=== PATIENT | female | born 1950 | race Caucasian/White ===

== ENCOUNTER 2016-10-18 07:39 | Day surgery (SDC) | payer MEDICAID, MEDICARE ==
[~2016-10-18 07:39] MED LIST: 1-ME1LIQ PO; ASPI325T10 OR; ATOR40TA49 PO; CARV12.5 PO; DIGO0.12 PO; FENO160T2 PO; GLUCTAB PO; LISI-360 PO; LORTA5 PO; NITR0.4S SL; PROP60CA PO; RANI150 PO
[2016-10-18] MEDS ORDERED: POVIDONE IODINE 5% (ANTISEPSIS KIT) 4 APPLICATIONS EACH NARE PRN (08:45)
[2016-10-18] MEDS ORDERED: LACTATED RINGER'S 1000 ML IV PRN (08:45)
[2016-10-18] MEDS ORDERED: INSULIN HUMAN REGULAR 1,000 UNITS/10 ML VIAL SQ PRN (08:45)
[2016-10-18] MEDS ORDERED: METOPROLOL TARTRATE 25 MG TAB PO PRN (08:45)
[2016-10-18] MEDS ORDERED: SODIUM CHLORID 0.9% 500 ML IV PRN (08:45)
[2016-10-18] MEDS ORDERED: CHLORHEXIDINE GLUCONATE 2 % 1 PACK (2 CLOTHS) TOPICAL PRN (08:45)
[2016-10-18] MEDS ORDERED: NOVONP2 SQ (09:24)
[2016-10-18] MEDS ORDERED: GLIM4TAB PO (09:24)
[2016-10-18] MEDS ORDERED: LISI10TA3 PO (09:24)
[2016-10-18] MEDS ORDERED: CYAN100017 PO (09:24)
[2016-10-18] MEDS ORDERED: ATOR40TA16 PO (09:24)
[2016-10-18] MEDS ORDERED: CARV12.52 PO (09:24)
[2016-10-18] MEDS ORDERED: NOVORP2 SQ (09:24)
[2016-10-18] MEDS ORDERED: CALC600T4 PO (09:24)
[2016-10-18] MEDS ORDERED: ASPI325T PO (09:24)
[2016-10-18] MEDS ORDERED: RANI150T PO (09:24)
[2016-10-18] MEDS ORDERED: FENO145T2 PO (09:24)
[2016-10-18] MEDS ORDERED: NITR0.4S SL (09:24)
[2016-10-18] MEDS ORDERED: PROPOFOL 200 MG/20 ML AMP IV ONE (09:51)
--- NOTE | 2016-10-18 11:08 | MB ---
cc: GUNNER PRECIADO MD, SOHIT K. MD MINOR, STEPHEN DATE OF CONSULTATION: 10/18/[address] Rocky Suarez REASON FOR CONSULTATION Severe mitral regurgitation. HISTORY OF PRESENT ILLNESS Ms. Krishnamurthy is a very pleasant 66-year white female with a known history of congestive heart failure, ischemic cardiomyopathy, coronary artery disease, who is status post previous coronary artery stenting x2, initially in 1998 and subsequently in 2013, who now presents with progressive symptoms of orthopnea, exertional dyspnea with minimal exertion and palpitations. The patient has been seen by Dr. Suarez and has undergone further work-up including an echocardiogram which has revealed moderate to severe mitral regurgitation in the setting of moderate left ventricular dysfunction with an estimated ejection fraction about 35% and a patent foramen ovale (PFO). She underwent a DANGELO today which confirmed the findings of severe mitral regurgitation with moderate to severe left ventricular dysfunction (EF 25-30%). I am now being consulted for a surgical opinion regarding her mitral valvular pathology. At the present time she has exertional dyspnea with minimal exertion but otherwise denies any chest pain or syncopal episodes. PAST MEDICAL HISTORY 1. Coronary artery disease as described above, status post angioplasty and stenting. 2. Congestive heart failure. 3. Cardiomyopathy. 4. Carotid artery disease, status post carotid endarterectomy. 5. History of myocardial infarction. 6. Pulmonary hypertension. 7. Hypertension. 8. Hyperlipidemia. 9. Insulin-dependent diabetes mellitus. 10. Multinodular goiter. 11.Osteoporosis. PAST SURGICAL HISTORY 1. Carotid endarterectomy bilateral, both in 2013. 2. Coronary angioplasty and stenting as described above. 3. . 4. Colonoscopy. 5. Tonsillectomy. 6. Tubal ligation. ALLERGIES No known drug allergies. MEDICATIONS Current medications include: 1. Aspirin. 2. Atorvastatin. 3. Calcium carbonate. 4. Carvedilol. 5. Vitamin-B. 6. Fenofibrate. 7. Glimepiride. 8. Lisinopril. 9. Nitrostat. 10.Insulin. 11.Ranitidine. 12.Vitamin-D. SOCIAL HISTORY The patient denies a history of illicit drug use. She is a social alcohol drinker and is a former smoker. FAMILY HISTORY Noncontributory. REVIEW OF SYSTEMS As above. All other parameters are negative. PHYSICAL EXAMINATION VITAL SIGNS: On physical examination today she is 78.4 kg, blood pressure 139/77 with a heart rate of 64 which is sinus rhythm, respiratory rate 18, and she is afebrile. HEENT: Normocephalic, atraumatic. Pupils are reactive. Extraocular muscles intact. NECK: No cervical lymphadenopathy, carotid bruits or JVD. CARDIOVASCULAR: Regular rate and rhythm. Normal S1, S2, without gallops or rubs. There is a 4/6 systolic ejection murmur with fairly distant heart sounds. LUNGS: Clear to auscultation bilaterally with good exchange. ABDOMEN: Soft, nontender, nondistended with normoactive bowel sounds. No hepatosplenomegaly. EXTREMITIES: Bilateral lower extremity pulses are intact without cyanosis, clubbing or edema. No venous varicosities. NEUROLOGIC: Intact with no focal deficits. IMPRESSION 1. Severe mitral regurgitation. 2. Coronary artery disease. 3. Congestive heart failure. 4. Patent foramen ovale. 5. Pulmonary hypertension. 6. Insulin-dependent diabetes mellitus. 7. Hypertension. 8. Carotid occlusive disease. 9. Hyperlipidemia. 10.Hypertensive renal insufficiency. PLAN The echo and DANGELO findings were discussed in detail with the patient and her friend today. Therapeutic options available including mitral valve repair/replacement with PFO closure were discussed. Prior to undertaking any cardiac surgical procedure she will need a coronary angiography to delineate her coronary anatomy as well as to identify any recurrent or residual epicardial coronary artery blockages. Dr. Suarez will schedule that at the patient's and his convenience, and we will follow-up with her at that point to discuss further surgical intervention. Thank you for allowing me to participate in the care of your patient. Jessie DOMINGUEZ /10:37 AM /10:48 AM
--- NOTE | 2016-10-18 12:03 | EKG ---
Date Performed: 10/18/2016 Time Performed: 08:20:28 PTAGE: 66 years EKG: Sinus rhythm . Left axis deviation LVH with secondary repolarization abnormality Lateral ST-T changes are probably due to ventricular hypertrophy Abnormal ECG NO SIGNIFICANT CHANGE FROM PRIOR ELECTROCARDIOGRAM. PREVIOUS TRACING : 12/26/2012 06.40 DOCTOR: Ángel Bucio Interpretating Date/Time 10/18/2016 12:03:19
--- NOTE | 2016-10-25 08:02 | ETE ---
Study Study Date:10/18/2016 STUDY CONCLUSIONS SUMMARY - Left ventricle: The cavity size was dilated. Wall thickness was at the upper limits of normal. Systolic function was severely reduced by visual assessment. The estimated ejection fraction was in the range of 20% to 25%. Diffuse hypokinesis. - Aortic valve: No evidence of vegetation. Mild regurgitation. - Mitral valve: Calcified annulus. No evidence of vegetation. Moderate to severe regurgitation. - Left atrium: The atrium was moderately dilated. No evidence of thrombus in the atrial cavity or appendage. - Right atrium: The atrium was mildly to moderately dilated. No evidence of thrombus in the atrial cavity or appendage. - Atrial septum: Doppler showed a moderate jepd-uu-byckw shunt through a patent foramen ovale, at baseline or with provocation. - Tricuspid valve: No evidence of vegetation. Mild regurgitation. - Pulmonic valve: No evidence of vegetation. - Pulmonary arteries: Systolic pressure was moderately increased. PA peak pressure: 50mm Hg (S). If LV function is below 40, please consider prescribing an ACEI or ARB or document rationale for non-use. PROCEDURE DATA Consent: The risks, benefits, and alternatives to the procedure were explained to the patient and informed consent was obtained. Procedure: Initial setup. The patient was brought to the laboratory in the fasting state. Intravenous access was obtained. Surface ECG leads and pulse oximetric signals were monitored. Sedation. Conscious sedation was administered by cardiology staff. Transesophageal echocardiography. Topical anesthesia was obtained using viscous lidocaine. A transesophageal probe was inserted by the attending community resource officer. Image quality was good. Study completion: All IVs inserted during the procedure were removed. The patient tolerated the procedure well. There were no complications. Transesophageal echocardiography. 2D, complete spectral Doppler, and color Doppler. CARDIAC ANATOMY LEFT VENTRICLE: The cavity size was dilated. Wall thickness was at the upper limits of normal. Systolic function was severely reduced by visual assessment. The estimated ejection fraction was in the range of 20% to 25%. Diffuse hypokinesis. AORTIC VALVE: Trileaflet; mildly thickened leaflets. Cusp separation was normal. No evidence of vegetation. Doppler: Mild regurgitation. Aorta: - There was no atheroma. There was no evidence for dissection. Aortic root: The aortic root was not dilated. Ascending aorta: The ascending aorta was normal in size. Aortic arch: The aortic arch was normal in size. Descending aorta: The descending aorta was normal in size. MITRAL VALVE: Calcified annulus. Leaflet separation was normal. No evidence of vegetation. Doppler: Moderate to severe regurgitation. LEFT ATRIUM: The atrium was moderately dilated. No evidence of thrombus in the atrial cavity or appendage. The appendage was morphologically a left appendage, multilobulated, and of normal size. Emptying velocity was normal. ATRIAL SEPTUM: Doppler showed a moderate kckm-wk-iulkn shunt through a patent foramen ovale, at baseline or with provocation. RIGHT VENTRICLE: The cavity size was at the upper limits of normal. Wall thickness was normal. Systolic function was normal. PULMONIC VALVE: Structurally normal valve. No evidence of vegetation. Doppler: Trace to mild regurgitation. TRICUSPID VALVE: Structurally normal valve. Leaflet separation was normal. No evidence of vegetation. Doppler: Mild regurgitation. PULMONARY ARTERY: The main pulmonary artery was mildly dilated. Systolic pressure was moderately increased. RIGHT ATRIUM: The atrium was mildly to moderately dilated. No evidence of thrombus in the atrial cavity or appendage. The appendage was morphologically a right appendage. PERICARDIUM: There was no pericardial effusion. DOPPLER MEASUREMENTS ADULT NORMAL Main pulmonary artery Pressure, S *50 mm Hg =30 Tricuspid valve Regurgitant peak velocity 320 cm/s Peak RV-RA gradient, S 41 mm Hg Systemic veins Estimated CVP 10 mm Hg Right ventricle RV pressure, S *51 mm Hg <30 Pulmonic valve Peak velocity, S 52.9 cm/s LEGEND: Mean values are shown as u=mean value. Asterisk (*) marcano values outside specified normal range. Prepared and signed by Clayton Suarez [id number]
== END 2016-10-18 10:30 | disposition home or self-care (01) ==
LOC: HDOC 07:39 → HDIC 07:40 → HDOC 10:30
PROVIDERS: ATTEND Internal Medicine
DX: I34.0 Nonrheumatic mitral (valve) insufficiency (principal); I50.9 Heart failure, unspecified; I25.5 Ischemic cardiomyopathy; I25.10 Atherosclerotic heart disease of native coronary artery without angina pectoris; Z95.5 Presence of coronary angioplasty implant and graft; Q21.1 Atrial septal defect; I42.9 Cardiomyopathy, unspecified; I25.2 Old myocardial infarction; I27.2 Other secondary pulmonary hypertension; I10 Essential (primary) hypertension; Z79.4 Long term (current) use of insulin; E11.9 Type 2 diabetes mellitus without complications; M81.0 Age-related osteoporosis without current pathological fracture; E04.2 Nontoxic multinodular goiter; E78.5 Hyperlipidemia, unspecified; N28.9 Disorder of kidney and ureter, unspecified; I65.29 Occlusion and stenosis of unspecified carotid artery
CPT/HCPCS: 93005; 93312; 93320; 93325

== ENCOUNTER 2016-10-24 06:34 | Day surgery (SDC) | payer MEDICARE ==
[~2016-10-24] VITALS: Ht 157.5 cm; Wt 74.4 kg
[~2016-10-24 06:34] MED LIST changes: +ASPI325T PO; +ATOR40TA16 PO; +CALC600T4 PO; +CARV12.52 PO; +CYAN100017 PO; +FENO145T2 PO; +GLIM4TAB PO; +LISI10TA3 PO; +NOVONP2 SQ; +NOVORP2 SQ; +RANI150T PO
[2016-10-24 07:35] VITALS: BP 183/101; PULSE 72; RESP 16; TEMP 97.9; O2SAT 95
[2016-10-24] MEDS ORDERED: VITA1000 PO (07:47)
[2016-10-24] MEDS ORDERED: IOHEXOL 350 MG/ML 50 ML BTL (for Cath Lab) OTHER ONE (09:02)
[2016-10-24] MEDS ORDERED: HEPARIN-NS/PF INJ 500 ML ONE (09:07)
[2016-10-24] MEDS ORDERED: MIDAZOLAM HCL 2 MG/2 ML VIAL ONE (09:08)
[2016-10-24] MEDS ORDERED: NITROGLYCERIN INJ 5 ML ONE (09:08)
[2016-10-24] MEDS ORDERED: HEPARIN SODIUM - IV 10,000 UNITS/10 ML VIAL ONE (09:08)
--- NOTE | 2016-10-24 10:05 | CATHPROC ---
Poppin HIS Report Study Information Study Number Admission Scheduled Start Study Start [id number] 10/24/2016 10/24/2016 Oct 24 2016 8:29AM Referring Institution Admit Source Facility Department 1 Other [facility] Operations Manager/Coordinator Physician and Clinical Staff Initial Clayton Landaverde Film Cuttercandice Holliday RN, Scottie RecordNidia Brothers,RT(R) (BS) Scrub Kody Sierra RCIS(BS) Procedures Performed Procedure Location (Site) Vessel Name Coronary Angiograms LCA Left Coronary Coronary Angiograms RCA Right Coronary Wire insertion Fem Art (right) Femoral Art Equipment Time Funds Transfer Clerk Description Size Mfg Part Number Used/Scraped ARROW INTERNATIONAL CATHETER, FR.7 BALLOON [id number] 08:30 FR 7 Used INC. WEDGE PRESSURE *[id number] TRANSDUCER, TRUWAVE 08:30 [employer] * [id number] Used W/STOCKCOCK [id number] *[id number] [id number] *[id number] 08:30 MEDLINE IND[employer] PACK, CCL CUSTOM * Used *[id number] 08:30 [employer] PACER PEN, SKIN DUAL W/ RULER * [id number] Used [id number] 08:30 BABL Media WIRE, 3MMJ .035 180CM 180CM Used *[id number] 08:30 NAMIC MANIFOLD, 2 PORT * Used *[id number] 08:30 NAMIC MANIFOLD, 4 PORT * Used *[id number] 08:30 NYCOMED OMNIPAQUE, 350 MG, 100ML 100ML [id number] Used DYEVERT, CONTRAST 09:13 [employer]SR[employer] NG HVOFF Used MODULATION SYSTEM NG [id number] 08:30 GARCES MEDICAL BLANKET,WARM AIR CCL * Used *[id number] 08:30 TERUMO MEDICAL SHEATH, FR5 TERUMO (10CM) FR 5 [id number] Used 08:30 TERUMO MEDICAL SHEATH, FR7 TERUMO (10CM) FR 7 [id number] Used History: Current Medications Medication Dosage/Unit Route Frequency Last Date/Time Taken Statins (any) ASA Beta Eitan History: Allergies Allergy Reaction No Known Allergies History: Risk Factors Family History of Hypertension Dyslipidemia Previous NM Previous Heart Failure Premature CAD Yes Yes No Yes No Prior Valve Prior PCI Prior PCIDate Prior CABG Surgery No Yes 06/09/1997 No Cerebrovascular Peripheral Artery Chronic Lung On Dialysis Diabetes Diabetes Therapy Disease Disease Disease No No No No Yes Oral History: Stress Tests Stress or Imaging Studies Performed No History: Other Current Smoker Method Quit Packs a Day Years Used Pack Years No Cigarettes 20 Years Ago 1 20 20 Labs Hgb (g/dl) Hct (%) WBC (l/cumm) Platelets (thousands) 12.00-18.00 37.00-55.00 4.80-10.80 140.00-450.00 12.4 39.3 3.9 160 Glucose (mg/dl) BUN (mg/dl) Creatinine (mg/dl) BUN:Creatinine (1:x) 60.00-110.00 8.00-20.00 0.10-9.00 10.00-20.00 143 38 2.0 19 Na (meq/l) 138.00-146.00 143 INR (PTT:PT) 0.50-2.00 1.1 CPK-MB (ng/ML) 0.00-7.00 Not Drawn Medication Medication Total Dose (Bolus/Oral) Medication Total Dosage/Unit 1% XYLOCAINE 20 mL FENTANYL 50 mcg VERSED 2 mg Medications (Bolus/Oral) Medication Time Given Dosage/Unit Administered By Reason 1% XYLOCAINE 10/24/2016 9:22:32 AM 20 mL Clayton Suarez 20 mL 1% XYLOCAINE given in lab by Clayton Suarez in Right Groin via Subcutaneous. VERSED 10/24/2016 9:23:30 AM 2 mg Scottie Holliday RN 2 mg VERSED given in lab by Scottie Holliday RN in Left Antecubital via Peripheral IV. FENTANYL 10/24/2016 9:24:10 AM 50 mcg Scottie Holliday RN 50 mcg FENTANYL given in lab by Scottie Holliday RN in Left Antecubital via Peripheral IV. Medication (Drip) Medication Time Given Dosage/Unit Concentration/Unit Diluent (ml) Solution IV Solutions 10/24/2016 9:04:45 AM 0 mL (IV) 500 NaCl .9 IV Solutions given in lab by Scottie Holliday RN in Left Antecubital via Peripheral IV. Pump/Drip Flow = 20 ml/hr using NaCl .9. Initial Case Assessment Cardiovascular HR Rhythm NIBP Chest Pain 77 reg 164/93 0 Edema Present Skin color Skin None Normal Warm Dry Circulatory - Right Pulses Dorsalis Pedis Femoral 1 1 Scale (0,1,2,3,4,d) Circulatory - Left Pulses Dorsalis Pedis Femoral 1 1 Scale (0,1,2,3,4,d) Circulatory - Lower Extremities Color Lower Right Color Lower Left Normal Normal Neurological State Oriented to time-place- Alert Moves all extremities person Respiration - General Respiration Rate SpO2 (%) (B/min) 15 95 Chronological Log Time Study Chronological Log 9:02:56 Patient arrived via Bed. 9:02:57 Patient Name, D.O.B, / Armband Verified By R.N. 9:04:33 Consent signed by the physician and the patient and verified by the Operations Manager/Coordinator staff. 9:04:34 Pre-op and post- op instructions given; patient acknowledges understanding of instructions. 9:04:35 Verbal Stimulation=2 Physical Stimulation=2 Airway=2 Respiration=2 TOTAL=8. (0=absent, 1=li mited, 2=present) 9:04:36 Presedation assessment performed by Operations Manager/Coordinator RN. 9:04:39 Patient has been NPO for More than 6Hrs. 9:04:41 Skin Breakdown none per pt 9:04:41 Patient Warmer Placed on the Table. 9:04:44 Inocencio Prominences Protected 9:04:45 A # 20 IV was noted in the Antecubital (left). Grade = 0 IV Solutions given in lab by Scottie Holliday RN in Left Antecubital via Peripheral IV. Pump/Drip F low = 20 ml/hr using NaCl 9:04:45 .9. 9:04:46 History and physical on the chart or being dictated. Assessment: Initial Case, HR=77 BPM, Rhythm=reg, XZWL=020/93 mmhg, Chest Pain=0, Edema=None, Col or=Normal, Skin = Warm, Dry Right Pulses: Marcelo Ped=1, Femoral=1 Left Pulses: Marcelo Ped=1, Femoral=1 9:04:47 Lower Right Extremities: Color=Normal Lower Left Extremities: Color=Normal Neurological: State=Alert, Ox3, HARMON Respiration: Resp=15 B/min, SpO2=95 % Vitals capture started with the following parameters, Patient=Adult, Interval=15 min, Initial Pr shssyy=337 mmHg, 9:05:07 Deflation Rate=5 mmHg 9:05:51 QFQN=192/93 mmhg, SpO2=92.0 %, Pain=0, Chidi=10, Grider=2 9:09:58 Reference ECG taken 9:10:15 Bilateral groins prepped with 2% chlorhexidine, and with a 3 min. waiting time. 9:10:52 HR=78 bpm, TZDH=833/100 mmhg, SpO2=95.0 %, Resp=13 B/min, Pain=0, Chidi=10, Grider=2 9:15:53 HR=75 bpm, RBWU=203/98 mmhg, SpO2=94.0 %, Resp=14 B/min, Pain=0, Chidi=10, Grider=2 9:20:48 HR=68 bpm, RMPR=602/70 mmhg, SpO2=90.0 %, Resp=6 B/min, Pain=0, Chidi=10, Grider=2 9:20:53 Pressure channel 1 zeroed. 9:21:08 Pressure channel 1 zeroed. Time Out. Correct patient, correct procedure,correct physician, power injector not loaded with c ontrast with surgical 9:22:18 team present. Time Out Concurred by , individual staff in procedure 9:22:31 Case Start 9:22:32 20 mL 1% XYLOCAINE given in lab by Clayton Suarez in Right Groin via Subcutaneous. 9:23:30 2 mg VERSED given in lab by Scottie Holliday RN in Left Antecubital via Peripheral IV. 9:24:02 Access site was Right Femoral Artery. 9:24:10 50 mcg FENTANYL given in lab by Scottie Holliday RN in Left Antecubital via Peripheral IV. 9:24:11 A SHEATH, FR5 TERUMO (10CM) FR 5 was advanced into the Fem Art (right) using the Percutaneou s technique. 9:25:36 Access site was Right Femoral Vein. 9:25:49 HR=63 bpm, UBHF=271/66 mmhg, SpO2=96.0 %, Resp=16 B/min, Pain=0, Chidi=10, Grider=2 9:25:55 A SHEATH, FR7 TERUMO (10CM) FR 7 was advanced into the Fem Vein (right) using the Percutaneo us technique. A CATHETER, FR.7 BALLOON WEDGE PRESSURE FR 7 was advanced over a wire. OMNIPAQUE, 350 MG, 100ML 100ML 9:27:18 was used for injections. 9:28:04 Pressure channel 1 zeroed. 9:30:06 Pressure channel 1 zeroed. Recorded Pressure: RA, HR=61, Condition=Condition 1 9:30:38 (Right Atrium) RA 9:30:46 HR=60 bpm, GJOS=479/65 mmhg, SpO2=98.0 %, Resp=11 B/min, Pain=0, Chidi=10, Grider=2 Recorded Pressure: RV, HR=66, Condition=Condition 1 9:31:06 (Right Ventricle) RV 50/-3/4 Recorded Pressure: RV, HR=60, Condition=Condition 1 9:31:32 (Right Ventricle) RV 52/1/6 Recorded Pressure: MPA, HR=60, Condition=Condition 1 9:32:32 (Main Pulmonary Artery) MPA 51/12/28 A JR 4.0 INFINITI CATHETER FR 5 was advanced over a wire. OMNIPAQUE, 350 MG, 100ML 100ML was use d for 9:32:44 injections. Recorded Pressure: LV, HR=61, Condition=Condition 1 9:33:40 (Left Ventricle) LV 160/3/15 9:33:54 Pressure channel 2 zeroed. Recorded Pressure: PCW, HR=61, Condition=Condition 1 9:34:35 (Pulmonary Capillary Wedge) PCW 9:35:12 Saturation: Site=PA (Pulmonary Artery) , O2=74.4 %, Hgb=12.4 gm/dl, Condition=Condition 1. U sed in calculation. 9:35:29 Saturation: Site=FA (Femoral Artery) , O2=92.8 %, Hgb=12.4 gm/dl, Condition=Condition 1. Us ed in calculation. 9:35:50 HR=61 bpm, UMHA=212/61 mmhg, SpO2=88.0 %, Resp=14 B/min, Pain=0, Chidi=10, Grider=2 Recorded Pressure: LV, Ao, PCW, HR=60, Condition=Condition 1 (Left Ventricle) LV 141/0/11, 9:36:26 (Aorta) Ao 138/48/80, (Pulmonary Capillary Wedge) PCW -8/-8/-8 Recorded Pressure: Ao, PCW, HR=60, Condition=Condition 1 9:37:12 (Aorta) Ao 133/51/81, (Pulmonary Capillary Wedge) PCW -7/-7/-8 9:38:05 The RCA was injected and visualized at various angles. OMNIPAQUE, 350 MG, 100ML 100ML used . After removing the current catheter a JL 4.0 INFINITI CATHETER FR 5 was advanced over a WIRE, 3 MMJ .035 180CM 9:38:22 180CM. 9:40:42 HR=61 bpm, NZQQ=758/64 mmhg, SpO2=98.0 %, Resp=14 B/min, Pain=0, Chidi=10, Grider=2 9:41:13 The LCA was injected and visualized at various angles. OMNIPAQUE, 350 MG, 100ML 100ML used . 9:42:10 A WIRE, 3MMJ .035 180CM 180CM was inserted via Fem Art (right). 9:42:19 Catheter was removed 9:42:20 Wire removed 9:42:25 Case End 9:42:53 Catheter(s) removed without difficulty 9:43:01 No case complications noted. 9:43:04 Cine recording checked. 9:43:06 Bedside Report will be given. 9:43:08 Contrast Scanned 9:43:11 A Left and Right Heart Cath was performed. 9:45:28 DOCU called. Spoke to [employer]. 9:46:29 HR=62 bpm, YNLQ=775/66 mmhg, SpO2=99.0 %, Resp=13 B/min, Pain=0, Chidi=10, Grider=2 9:46:54 Sheath removed; pressure applied to access site. artery 9:50:53 HR=59 bpm, NFKZ=365/69 mmhg, SpO2=99.0 %, Resp=15 B/min, Pain=0, Chidi=10, Grider=2 9:55:52 HR=57 bpm, WWTU=998/68 mmhg, SpO2=98.0 %, Resp=17 B/min 9:57:39 Sheath removed; pressure applied to access site. vein 10:00:53 HR=57 bpm, NEQS=426/67 mmhg, SpO2=98.0 %, Resp=18 B/min, Pain=0, Chidi=10, Grider=2 10:03:38 Sterile dressing applied to site 10:04:24 Vitals capture stopped. 10:07:12 Patient moved to [facility] Study - Contrast Media Used In Study Contrast Total Opened (mL) Total Used (mL) Total Wasted (mL) Omnipaque 12 12 0 End Study - Maximum Contrast Load Max Contrast Load (mL) 186.0 End Study - Radiation Exposure Fluoro Time (minutes) 4.0 End Study - Sheaths Sheaths Pulled By Sheath Hold Time (min) Kody Sierra End Study - Patient Disposition Complications Transferred To Interventional Outcome No Operations Manager/Coordinator Holding No attempt made
--- NOTE | 2016-10-24 10:26 | MA ---
cc: JUSTINE DELUCA DATE 10/24/2016 PROCEDURE PERFORMED 1. Fluoroscopy with interpretation 2. Left heart catheterization 3. Coronary angiography 4. Right heart catheterization METHOD The risks, benefits and alternatives discussed with the patient. The patient understood and consent to the procedure. PROCEDURE The patient brought into the catheterization lab, placed on the catheterization table. The right groin was prepped and draped in a sterile fashion. The right groin was anesthetized with 2% lidocaine. The right common femoral artery was cannulated and a 5-Turkish 11 cm sheath was placed without difficulty. The right femoral vein was also accessed and a 7-Turkish 11 cm sheath was placed without difficulty. LEFT HEART CATHETERIZATION A 5-Turkish JR-5 catheter was advanced across the aortic valve without difficulty. Intraventricular hemodynamics measured 141/0 mmHg. The left ventricular end-diastolic pressure 11 mmHg. No significant aortic stenosis by transaortic valvular pullback gradient. RIGHT HEART CATHETERIZATION A 7-Turkish Dallas-Perez pulmonary arterial catheter was advanced through the right femoral venous sheath to the level of the right atrium under fluoroscopic guidance. Hemodynamics are as follows; 1. Right atrial pressure measured at 9 mmHg. Right ventricular pressure measured at 51/1 mmHg. Pulmonary arterial pressure measured at 51/12 mmHg. Pulmonary capillary wedge pressure measured 10 mmHg. Cardiac output measured at 7.1 liters per minute. The cardiac index is 4.0 liters per minute. 2. Simultaneous left ventricular end-diastolic pressure and pulmonary capillary wedge pressure tracings revealed no significant mitral stenosis present. CORONARY ANGIOGRAPHY 1. The left main coronary has minor luminal irregularities. 2. Left anterior descending coronary artery is heavily calcified. Just beyond the takeoff of a first septal video player mechanic in the mid left anterior descending, there is a large stent present which appears to be widely patent. Just proximal to the stent, there is an 80% tubular stenosis present. There is a large diagonal branch that bifurcates off the mid to distal segment that has minor luminal irregularities. The distal left anterior descending coronary is a smaller caliber size with some moderate 50% stenosis throughout to the level of the apical LAD which has some more significant disease. 3. The left circumflex coronary has a 75% ostial stenosis leading to an obtuse marginal branch. There is a 60% stenosis in the proximal obtuse marginal branch and there is minor irregularities thereafter. The right coronary is 100% occluded. There is very severe heavy calcium throughout its entire course, subtotally occluded proximally and then totally occluded distally. There is a smaller caliber vessel of the posterior descending coronary noted on [id number] collateralization. CONCLUSION 1. Severe multivessel coronary artery disease. 2. Moderate pulmonary hypertension 3. Normal left and right-sided filling pressures 4. Normal cardiac output and index. PLAN We will discuss the case further with Dr. Elizabeth for further recommendations related to a bypass surgery, mitral valve repair/replacement and PFO closure. MD BARNEY Arzola/JESUS /9:57 AM /10:15 AM
== END 2016-10-24 14:52 | disposition home or self-care (01) ==
LOC: HDIC 06:34 → HDOC 06:34
PROVIDERS: ATTEND Internal Medicine
DX: I25.10 Atherosclerotic heart disease of native coronary artery without angina pectoris (principal); I27.2 Other secondary pulmonary hypertension
CPT/HCPCS: 82810; 86850; 86900; 86901; 93456; C1769; C1893; J1644; J2250; J3010; Q9967

== ENCOUNTER 2016-11-22 06:32 | Day surgery (SDC) | payer MEDICARE ==
[~2016-11-22] VITALS: Ht 157.5 cm; Wt 76.5 kg
[2016-11-22] VITALS (10 sets, daily range): BP systolic 141–159; BP diastolic 72–84; PULSE 56–94; RESP 16–17; TEMP 98.1; O2SAT 95–96
[~2016-11-22 06:32] MED LIST changes: -1-ME1LIQ PO; -ASPI325T10 OR; -ATOR40TA49 PO; -CARV12.5 PO; -DIGO0.12 PO; -FENO160T2 PO; -GLUCTAB PO; -LISI-360 PO; -LORTA5 PO; -PROP60CA PO; -RANI150 PO; +VITA1000 PO
[2016-11-22] MEDS: NS 1000 ML @100 MLS/HR IV SCH ×3 (07:15→17:15)
[2016-11-22] MEDS ORDERED: VITA10002 PO (07:33)
[2016-11-22] MEDS ORDERED: MIDAZOLAM HCL 2 MG/2 ML VIAL ONE (10:25)
[2016-11-22] MEDS ORDERED: STERILE WATER FOR INJECTION 10 ML VIAL ONE (10:26)
[2016-11-22] MEDS ORDERED: BIVALIRUDIN 250 MG VIAL ONE (10:26)
[2016-11-22] MEDS ORDERED: HEPARIN-NS/PF INJ 500 ML ONE (10:26)
[2016-11-22] MEDS ORDERED: CLOPIDOGREL 300 MG TAB ONE (11:36)
[2016-11-22] MEDS ORDERED: oxyCODONE/ACETAMINOPHEN 10 MG/325 MG TAB PO PRN (11:45)
[2016-11-22] MEDS ORDERED: LORazepam 2 MG/ML VIAL IV PRN (11:45)
[2016-11-22] MEDS ORDERED: ATROPINE SULFATE 1 MG/ML VIAL IV PRN (11:45)
[2016-11-22] MEDS ORDERED: MISC INFORMATION XX ONE (11:45)
[2016-11-22] MEDS ORDERED: LIDOCAINE 2% JELLY 30 ML TUBE TOP PRN (11:45)
[2016-11-22] MEDS ORDERED: LIDOCAINE HCL 1% 50 ML VIAL INFIL PRN (11:45)
[2016-11-22] MEDS ORDERED: PLAV75TA29 PO (11:46)
--- NOTE | 2016-11-22 11:58 | CATHPROC ---
[facility] [employer] HIS Report Study Information Study Number Admission Scheduled Start Study Start [id number] 11/22/2016 11/22/2016 Nov 22 2016 10:32AM Study Type [place] Service Left/Possible PCI Cardiac Catheterization Referring Institution Admit Source Facility Department 1 Other [facility] Operator Physician and Clinical Staff Initial Clayton Landaverde Dust Box Worker Radha Bender BSRN Recorder Rafaela Callahna,CASEY TECH2 Scrub Nidia Burgos,RT(R) (BS) Procedures Performed Procedure Location (Site) Vessel Name Coronary Angiograms LCA Left Coronary Drug Eluting Inflatio CIRC Prox CIRC Drug Eluting Inflatio LAD Mid Left Coronary PTCA CIRC Prox CIRC PTCA LAD Mid Left Coronary Wire insertion Fem Art (right) Femoral Art Equipment Time Scale Assembly Set Up Worker Description Size Mfg Part Number Used/Scraped COPILOT VALVE, BLEEDBACK [id number] 10:38 [employer] Used CONTROL *[id number] TRANSDUCER, TRUWAVE [id number] 10:38 JACK MCKENZIE * Used W/STOCKCOCK *[id number]- INTRODUCER SET, 10:57 [employer]. FR 5 SC-NT-U-SST Used MICROPUNCTURE, STIFFENED *[id number] *[id number] 10:38 [employer]ise INDUSTRIES PACK, CCL CUSTOM * Used *[id number] 10:38 [employer]ise PACER PEN, SKIN DUAL W/ RULER * Used *[id number] 11:25 MEDTRONIC BALLOON, 2.0 X 20MM EUPHORA 20MM Used *[id number] 11:10 MEDTRONIC BALLOON, 2.5 X 20MM EUPHORA 20MM Used *[id number] BALLOON, 3.0 X 20MM NC [id number] 11:19 MEDTRONIC 20MM Used EUPHORA *[id number] STENT, 2.25 18 RESOLUTE [id number] 11:27 MEDTRONIC 2.25 18 Used INTEGRITY RX *[id number] STENT, 3.0 34 RESOLUTE [id number] 11:13 MEDTRONIC 3.0 34 Used INTEGRITY RX *[id number] 11:12 Estorian MEDICAL 30 ANKIT INDEFLATOR Used *[id number] 10:38 Estorian MEDICAL SHEATH, FR6.5 PRELUDE 11CM FR 6.5 038ACT Used *[id number] [id number] 10:38 Estorian MEDICAL WIRE, 3MMJ .035 180CM 180CM Used *[id number] [id number] 10:38 NAMIC MANIFOLD, 4 PORT * Used *[id number] 10:38 NYCOMED OMNIPAQUE, 350 MG, 150ML 150ML [id number] Used [id number] 10:38 DARIEN MEDICAL BLANKET,WARM AIR CCL * Used *[id number] 10:39 TERUMO MEDICAL SHEATH, FR5 TERUMO (10CM) FR 5 [id number] Used WIRE, RUNTHROUGH NS FLOPPY -1011 11:20 TERUMO MEDICAL 180CM Used .014 180CM *[id number] WIRE, RUNTHROUGH NS FLOPPY 25-1011 11:22 TERUMO MEDICAL 180CM Used .014 180CM *[id number] WIRE, RUNTHROUGH NS FLOPPY 25-1011 11:08 TERUMO MEDICAL 180CM Used .014 180CM *[id number] Equipment Model, Serial, Lot Number and Expiration Data Description Model Number Serial Number Lot Number Expiration Date INTRODUCER SET, [id number] 09-17-2019 MICROPUNCTURE, STIFFENED STENT, 2.25 18 RESOLUTE [id number] 04-01-2018 INTEGRITY RX STENT, 3.0 34 RESOLUTE [id number] 06-29-2018 INTEGRITY RX History: Current Medications Medication Dosage/Unit Route Frequency Last Date/Time Taken ASA CARVEDILOL Statins (any) LISINOPRIL NTG SL Insulin VITAMIN D History: Allergies Allergy Reaction NKDA History: Risk Factors Family History of Hypertension Dyslipidemia Previous VT Previous Heart Failure Premature CAD Yes Yes Yes Yes Yes Prior Valve Prior PCI Prior PCIDate Prior CABG Surgery No Yes 11/07/2012 No Cerebrovascular Peripheral Artery Chronic Lung On Dialysis Diabetes Diabetes Therapy Disease Disease Disease No Yes No No Yes Insulin History: CV Disease Selection Items Cardiomyopathy ischemic Known CAD VT History: Stress Tests Stress or Imaging Studies Performed No History: Other Disease Selection Items CAD Gerd Renal Failure/Insufficiency History: Other Current Smoker Method Quit Packs a Day Years Used Pack Years No Cigarettes 20 Years Ago 1 15 15 Labs Hgb (g/dl) Hct (%) WBC (l/cumm) Platelets (thousands) 12.00-18.00 37.00-55.00 4.80-10.80 140.00-450.00 11.9 36.8 4.3 148 Glucose (mg/dl) BUN (mg/dl) Creatinine (mg/dl) BUN:Creatinine (1:x) 60.00-110.00 8.00-20.00 0.10-9.00 10.00-20.00 157 37 2.0 18.5 Na (meq/l) K (meq/l) 138.00-146.00 3.80-5.10 142 4.3 PTT (sec) INR (PTT:PT) 25.10-32.70 0.50-2.00 11.1 1.1 CPK-MB (ng/ML) 0.00-7.00 Not Drawn Medication Medication Total Dose (Bolus/Oral) Medication Total Dosage/Unit 1% XYLOCAINE 20 mL ANGIOMAX BOLUS 11 mL FENTANYL 25 mcg NTG (IC) 200 mcg OXYGEN 2 l/min PLAVIX 600 mg VERSED 1 mg Medications (Bolus/Oral) Medication Time Given Dosage/Unit Administered By Reason VERSED 11/22/2016 10:52:33 AM 1 mg Radha Bender 1 mg VERSED given in lab by Radha Bender BSRN in Left Forearm via Peripheral IV. Ordered by Clayton Dwyer. FENTANYL 11/22/2016 10:53:29 AM 25 mcg Radha Bender 25 mcg FENTANYL given in lab by Radha Bender BSRN in Left Forearm via Peripheral IV. Ordered by Clayton Suarez. 1% XYLOCAINE 11/22/2016 10:54:49 AM 20 mL Clayton Suarez 20 mL 1% XYLOCAINE given in lab by Clayton Suarez in Right Groin via Subcutaneous. Ordered by Clayton Suarez. OXYGEN 11/22/2016 11:07:15 AM 2 l/min Clayton Suarez 2 l/min OXYGEN given in lab by Clayton Suarez via Nasal. Ordered by Clayton Suarez. ANGIOMAX BOLUS 11/22/2016 11:09:17 AM 11 mL Radha Bender 11 mL ANGIOMAX BOLUS given in lab by Radha Bender BSRN in Left Forearm via Peripheral IV. Ordere d by Clayton Suarez. NTG (IC) 11/22/2016 11:31:01 AM 200 mcg Clayton Suarez 200 mcg NTG (IC) given in lab by Clayton Suarez via Intra-coronary. Ordered by Clayton Suarez. PLAVIX 11/22/2016 11:45:46 AM 600 mg Radha Bender 600 mg PLAVIX given in lab by Radha Bender BSRN via Oral. Ordered by Clayton Suarez. Medication (Drip) Medication Time Given Dosage/Unit Concentration/Unit Diluent (ml) Solution ANGIOMAX DRIP 11/22/2016 11:10:22 AM 1.75 mg/kg/hr 250 mg 50 NaCl .9 1.75 mg/kg/hr ANGIOMAX DRIP given in lab by Radha Bender BSRN in Left Forearm via Peripheral IV. Pump/Drip Flow = 26.08 ml/hr using NaCl .9 with a concentration of 250 mg in 50 ml. Ordered by Clayton Suarez. IV Solutions 11/22/2016 10:39:57 AM 0 mL (IV) 500 NaCl .9 Patient arrived on IV Solutions given by Radha Bender BSRN in Left Forearm via Peripheral IV. Pu mp/Drip Flow = 20 ml/hr using NaCl .9. Initial Case Assessment Cardiovascular HR Rhythm NIBP Chest Pain 69 sr 169/85 0 Circulatory - Right Pulses Dorsalis Pedis Femoral 1 1 Scale (0,1,2,3,4,d) Circulatory - Left Pulses Dorsalis Pedis Femoral 1 1 Scale (0,1,2,3,4,d) Neurological State Oriented to time-place- Alert Moves all extremities person Respiration - General Respiration Rate SpO2 (%) (B/min) 13 97 Final Case Assessment Cardiovascular HR Rhythm NIBP Chest Pain 58 sr 140/73 0 Circulatory - Right Pulses Dorsalis Pedis Femoral 1 1 Scale (0,1,2,3,4,d) Circulatory - Left Pulses Dorsalis Pedis Femoral 1 1 Scale (0,1,2,3,4,d) Neurological State Oriented to time-place- Alert Moves all extremities person Respiration - General Respiration Rate SpO2 (%) (B/min) 16 99 Chronological Log Time Study Chronological Log 10:28:10 Patient arrived via Bed. 10:28:17 Patient Name, D.O.B, / Armband Verified By R.N. Vitals capture started with the following parameters, Patient=Adult, Interval=15 min, Initial P javvvrn=758 mmHg, 10:32:18 Deflation Rate=5 mmHg 10:33:38 HR=68 bpm, QLRU=062/85 mmhg, SpO2=95.0 %, Resp=16 B/min, Pain=0, Chidi=10, Grider=2 10:34:30 Reference ECG taken 10:39:14 Consent signed by the physician and the patient and verified by the [facility] staff. 10:39:15 Pre-op and post- op instructions given; patient acknowledges understanding of instructions. 10:39:18 Verbal Stimulation=2 Physical Stimulation=2 Airway=2 Respiration=2 TOTAL=8. (0=absent, 1=li mited, 2=present) 10:39:33 Presedation assessment performed by [facility] Operator RN. 10:39:36 Patient has been NPO for More than 6Hrs. 10:39:37 Skin Breakdown-none 10:39:39 Inocencio Prominences Protected 10:39:44 A # 20 IV was noted in the Forearm (left). Grade = patent Patient arrived on IV Solutions given by Radha Bender BSRN in Left Forearm via Peripheral IV. Pump/Drip Flow = 10:39:57 20 ml/hr using NaCl .9. 10:40:32 History and physical on the chart or being dictated. Assessment: Initial Case, HR=69 BPM, Rhythm=sr, UUTH=917/85 mmhg, Chest Pain=0 Right Pulses: Marcelo Ped=1, Femoral=1 10:40:33 Left Pulses: Marcelo Ped=1, Femoral=1 Neurological: State=Alert, Ox3, HARMON Respiration: Resp=13 B/min, SpO2=97 % 10:43:44 Bilateral groins prepped with 2% chlorhexidine, and with a 3 min. waiting time. 10:48:02 HR=70 bpm, DNES=828/90 mmhg, SpO2=96.0 %, Resp=17 B/min, Pain=0, Chidi=10, Grider=2 10:51:52 MD arrived. 10:52:33 1 mg VERSED given in lab by Radha Bender BSRN in Left Forearm via Peripheral IV. Order ed by Clayton Suarez. 25 mcg FENTANYL given in lab by Radha Bender BSRN in Left Forearm via Peripheral IV. Order ed by Erick 10:53:29 Clayton. Time Out. Correct patient, correct procedure,correct physician, power injector not loaded with contrast with surgical ::59 team present. Time Out Concurred by MD and individual staff in procedure 10:54:46 Case Start 10:54:49 20 mL 1% XYLOCAINE given in lab by Clayton Suarez in Right Groin via Subcutaneous. Ordered by Clayton Suarez. 10:55:59 Access in RFA obtained, access lost, manual pressure held. 10:58:20 Access site was Right Femoral Artery. A INTRODUCER SET, MICROPUNCTURE, STIFFENED FR 5 was advanced into the Fem Art (right) using the :58:32 Percutaneous technique. Unable to advance wire, access aborted, manual pressure held. 10:59:52 Pressure channel 1 zeroed. 11::29 Access site was Right Femoral Artery. A INTRODUCER SET, MICROPUNCTURE, STIFFENED FR 5 was advanced into the Fem Art (right) using the ::53 Percutaneous technique. 11:03:08 HR=58 bpm, GMJE=171/80 mmhg, SpO2=98.0 %, Resp=12 B/min, Pain=0, Chidi=10, Grider=2 A SHEATH, FR6.5 PRELUDE 11CM FR 6.5 was exchanged in the Fem Art (right). This was necessary in order to 11:03:50 accomodate a larger catheter. 11:05:08 A AL 1 GUIDE CATHETER FR 6 was advanced over a wire. OMNIPAQUE, 350 MG, 150ML 150ML was use d for injections. Recorded Pressure: Ao, HR=60, Condition=Condition 1 11:06:30 (Aorta) Ao 172/65/104 11:07:15 2 l/min OXYGEN given in lab by Clayton Suarez via Nasal. Ordered by Clayton Suarez. 11:07:44 The LCA was injected and visualized at various angles. OMNIPAQUE, 350 MG, 150ML 150ML used . 11 mL ANGIOMAX BOLUS given in lab by Radha Bender BSRN in Left Forearm via Peripheral IV. Ordered by Erick, 11:09:17 Clayton. 1.75 mg/kg/hr ANGIOMAX DRIP given in lab by Radha Bender BSRN in Left Forearm via Peripher al IV. Pump/Drip 11:10:22 Flow = 26.08 ml/hr using NaCl .9 with a concentration of 250 mg in 50 ml. Ordered by Misael Suarez. 11:10:48 A WIRE, RUNTHROUGH NS FLOPPY .014 180CM 180CM was inserted via Fem Art (right). A BALLOON, 2.5 X 20MM EUPHORA 20MM was inserted over WIRE, RUNTHROUGH NS FLOPPY .014 180CM 180C M via 11:11:05 the LAD Mid. A BALLOON, 2.5 X 20MM EUPHORA 20MM over a WIRE, RUNTHROUGH NS FLOPPY .014 180CM 180CM in the LA D Mid 11:11:34 was inflated using a 30 ANKIT INDEFLATOR at 14 ankit for 30 sec. A BALLOON, 2.5 X 20MM EUPHORA 20MM over a WIRE, RUNTHROUGH NS FLOPPY .014 180CM 180CM in the LA D Mid 11:12:11 was inflated using a 30 ANKIT INDEFLATOR at 12 ankit for 20 sec. 11:13:32 Balloon Removed. A STENT, 3.0 34 RESOLUTE INTEGRITY RX 3.0 34 was advanced through a AL 1 GUIDE CATHETER FR 6 ov er a WIRE, 11:13:48 RUNTHROUGH NS FLOPPY .014 180CM 180CM. A STENT, 3.0 34 RESOLUTE INTEGRITY RX 3.0 34 was deployed using a 30 ANKIT INDEFLATOR at 16 atmos pheres for 11:14:22 13 seconds in the LAD Mid. 11:15:15 Delivery device removed A BALLOON, 3.0 X 20MM NC EUPHORA 20MM was inserted over WIRE, RUNTHROUGH NS FLOPPY .014 180CM 1 80CM 11:17:07 via the LAD Mid. 11:17:57 HR=59 bpm, XEWU=951/67 mmhg, YfW5=695.0 %, Resp=14 B/min A BALLOON, 3.0 X 20MM NC EUPHORA 20MM over a WIRE, RUNTHROUGH NS FLOPPY .014 180CM 180CM in the LAD 11:17:58 Mid was inflated using a 30 ANKIT INDEFLATOR at 18 ankit for 20 sec. A BALLOON, 3.0 X 20MM NC EUPHORA 20MM over a WIRE, RUNTHROUGH NS FLOPPY .014 180CM 180CM in the LAD 11:18:07 Mid was inflated using a 30 ANKIT INDEFLATOR at 18 ankit for 10 sec. A BALLOON, 3.0 X 20MM NC EUPHORA 20MM over a WIRE, RUNTHROUGH NS FLOPPY .014 180CM 180CM in the LAD 11:18:11 Mid was inflated using a 30 ANKIT INDEFLATOR at 18 ankit for 10 sec. 11:18:58 Balloon Removed. A INTRODUCER SET, MICROPUNCTURE, STIFFENED FR 5 was advanced into the Fem Art (right) using the ::22 Percutaneous technique. 11:20:46 A WIRE, RUNTHROUGH NS FLOPPY .014 180CM 180CM was inserted via Fem Art (right). Advanced to the circ 11:21:47 Unable to advance. Wire removed 11:22:12 A WIRE, RUNTHROUGH NS FLOPPY .014 180CM 180CM was inserted via Fem Art (right). A BALLOON, 2.0 X 20MM EUPHORA 20MM was inserted over WIRE, RUNTHROUGH NS FLOPPY .014 180CM 180C M via 11:24:59 the CIRC Prox. A BALLOON, 2.0 X 20MM EUPHORA 20MM over a WIRE, RUNTHROUGH NS FLOPPY .014 180CM 180CM in the CI RC 11:25:48 Prox was inflated using a 30 ANKIT INDEFLATOR at 8 ankit for 30 sec. A BALLOON, 2.0 X 20MM EUPHORA 20MM over a WIRE, RUNTHROUGH NS FLOPPY .014 180CM 180CM in the CI RC 11:26:45 Prox was inflated using a 30 ANKIT INDEFLATOR at 8 ankit for 15 sec. A BALLOON, 2.0 X 20MM EUPHORA 20MM over a WIRE, RUNTHROUGH NS FLOPPY .014 180CM 180CM in the CI RC 11:26:49 Prox was inflated using a 30 ANKIT INDEFLATOR at 8 ankit for 15 sec. 11:27:12 Balloon Removed. A STENT, 2.25 18 RESOLUTE INTEGRITY RX 2.25 18 was advanced through a AL 1 GUIDE CATHETER FR 6 over a 11:27:35 WIRE, RUNTHROUGH NS FLOPPY .014 180CM 180CM. A STENT, 2.25 18 RESOLUTE INTEGRITY RX 2.25 18 was deployed using a 30 ANKIT INDEFLATOR at 16 ankit ospheres 11:30:06 for 12 seconds in the CIRC Prox. 11:30:36 Delivery device removed 11:31:01 200 mcg NTG (IC) given in lab by Clayton Suarez via Intra-coronary. Ordered by Reshma Suarez en. 11:32:04 Wires removed 11:33:05 A WIRE, 3MMJ .035 180CM 180CM was inserted via Fem Art (right). 11:33:12 Guide Catheter was removed 11:33:24 Case End 11:33:37 HR=59 bpm, MIVK=812/73 mmhg, SpO2=99.0 %, Resp=16 B/min 11:35:58 In the Fem Art (right) the SHEATH, FR6.5 PRELUDE 11CM FR 6.[address] by Nidia Rasmussen RT(R) (BS). 11:36:08 Sterile dressing applied to site 11:36:10 No case complications noted. Assessment: Final Case, HR=58 BPM, Rhythm=sr, REUU=856/73 mmhg, Chest Pain=0 Right Pulses: Marcelo Ped=1, Femoral=1 11:36:12 Left Pulses: Marcelo Ped=1, Femoral=1 Neurological: State=Alert, Ox3, HARMON Respiration: Resp=16 B/min, SpO2=99 % 11:36:48 Cine recording checked. 11:36:51 Bedside Report will be given. 11:36:52 Implantable Device card placed in patient's chart. 11:43:35 Patient moved to bed 11:45:46 600 mg PLAVIX given in lab by Radha Bender BSRN via Oral. Ordered by Clayton Suarez. 11:46:48 Patient transported to DOCU. End Study - Contrast Media Used In Study Contrast Total Opened (mL) Total Used (mL) Total Wasted (mL) Omnipaque 25 25 0 End Study - Maximum Contrast Load Max Contrast Load (mL) 186.3 End Study - Radiation Exposure Fluoro Time (minutes) 11.3 End Study - Patient Disposition Complications Transferred To Interventional Outcome No Telemetry Bed successful
[2016-11-22] MEDS ORDERED: SODIUM CHLOR 0.9% 1000 ML INJ 1,000 ML IV SCH (12:00)
[2016-11-22] MEDS ORDERED: BACITRACIN OINT 0.9 GM PKT TOP ONE (12:00)
[2016-11-22] MEDS ORDERED: MORPHINE SULFATE 4 MG/ML INJ IV PUSH PRN (12:00)
[2016-11-22] MEDS ORDERED: cloNIDine HCL 0.1 MG TAB PO PRN (12:00)
[2016-11-22] MEDS ORDERED: oxyCODONE/ACETAMINOPHEN 5 MG/325 MG TAB PO PRN (12:00)
[2016-11-22] MEDS ORDERED: TEMAZEPAM 15 MG CAP PO PRN (12:00)
[2016-11-22] MEDS ORDERED: ACETAMINOPHEN 325 MG TAB PO PRN (12:00)
[2016-11-22] MEDS ORDERED: IOHEXOL 350 MG/ML 50 ML BTL (for Cath Lab) OTHER ONE (12:17)
--- NOTE | 2016-11-22 12:19 | MA ---
cc: JUSTINE DELUCA DATE: 11/22/2016 INDICATION FOR PROCEDURE A very nice 66-year-old female with severe mitral regurgitation in addition to multivessel coronary disease. She was referred for consideration of bypass and mitral valve repair/replacement, but due to a high risk and co-morbidities she was felt not to be a good surgical candidate. Mitral regurgitation also was felt to be possibly ischemic etiology. We had a lengthy discussion in the office and felt that if we could at least due a percutaneous revascularization maybe her ejection fraction would improve, the mitral regurgitation could improve. She had been followed at [facility] and still may be a candidate for consideration of possible mitral valve clip. At this point we decided to bring her in for attempt at revascularization of the LAD and circumflex coronary arteries. Creatinine was noted be to 2.0. CONTRAST USED Total amount of contrast administered 25 cc. PROCEDURE PERFORMED 1. Fluoroscopy with interpretation. 2. Coronary angiography. 3. Percutaneous endovascular stenting with drug-eluting stents to the proximal-mid left anterior descending coronary artery. 4. Percutaneous transluminal coronary angioplasty endovascular stenting of the proximal left circumflex coronary artery. METHOD The risks, benefits and alternatives were discussed with the patient. The patient understood and consented to the procedure. The patient was brought into the catheterization lab and placed on the catheterization table. The right groin was prepped and draped in a sterile fashion. The right groin was anesthetized with 2% lidocaine. The right common femoral artery was cannulated and a 6-British, 11 cm sheath was placed without difficulty. CORONARY ANGIOGRAPHY 1. The left main coronary just has minor luminal irregularities. 2. The left anterior descending coronary is heavily calcified. In the midsegment there is a stent present. The mid left anterior descending coronary has an 80% tubular stenosis. The distal LAD itself also has rather diffuse disease out to the apex which has several 80-90% stenoses. 3. The left circumflex has 75% ostial stenosis. There is also 70% stenosis in the proximal to midsegment of the first obtuse marginal branch which is small in caliber size. 4. The right coronary is 100% occluded as previously known, not seen today. PERCUTANEOUS INTERVENTION The left coronary circulation is selectively engaged with a 6-British, AL-1 guide catheter. A 0.014, 180 cm Terumo Runthrough wire is navigated down the distal left anterior descending coronary artery. A 2.5 x 20 mm RX Euphora balloon is deployed on two sequential inflations in the proximal to mid segment of the left anterior descending coronary artery. A 3.0 x 34 mm RX Resolute drug-eluting stent was then advanced down from the proximal extending into mid with stent overlap and deployed and postdilated with a 3.0 x 20 mm noncompliant balloon to 18 atmospheres. Repeat angiography shows no residual stenosis, CELSO-III flow. Attention is then directed towards the left circumflex coronary artery. A second wire is navigated down into the distal first obtuse marginal branch. A 2.0 x 20 mm RX Euphora balloon is advanced down to the proximal to mid segment of the left circumflex and deployed. A 2.25 x 18 mm RX Resolute drug-eluting stent is advanced to the proximal left circumflex and deployed. Repeat angiography shows no residual stenosis in the proximal. There is some small vessel disease in the obtuse marginal branch but felt to be too small for intervention. Both wires are removed. The patient tolerated the procedure well without apparent procedure complications. Angiomax was administered throughout the entire procedure to maintain appropriate anticoagulation. The sheath was sewn into place to be removed with manual hemostasis. CONCLUSIONS Successful percutaneous intervention with drug-eluting stents to the mid left anterior descending and proximal left circumflex coronary arteries. PLAN The patient will be monitored closely for any post-procedure complications. I anticipate she will be discharged tomorrow morning. Will initiate Plavix. Will follow her ejection fraction and mitral regurgitation and make a determination as to future approach depending on her clinical course. MD BARNEY Arzola/CADENCE /11:44 AM /12:03 PM
[2016-11-22] MEDS ORDERED: ONDANSETRON HCL 4 MG/2 ML VIAL IV PRN (13:00)
[2016-11-22] MEDS ORDERED: BIVALIRUDIN INJ 250 MG in SODIUM CHLORIDE 0.9% INJ 50 ML IV SCH (13:00)
[2016-11-22] MEDS ORDERED: METOCLOPRAMIDE HCL 10 MG/2 ML VIAL IV PRN (13:00)
[2016-11-22] MEDS ORDERED: SODIUM CHLOR 0.9% 250 ML INJ 250 ML IV PRN (13:00)
[2016-11-22] MEDS ORDERED: ASPIRIN 325 MG TAB PO ONE (17:45)
[2016-11-22] MEDS: INSULIN NovoLIN REGULAR SUPPLEMENTAL SCALE SQ SCH ×2 (18:35→21:00)
[2016-11-22] MEDS ORDERED: FAMOTIDINE 20 MG TAB PO SCH (21:00)
[2016-11-22] MEDS ORDERED: ATORVASTATIN 40 MG TAB PO SCH (21:00)
[2016-11-22] MEDS: CARVEDILOL 12.5 MG TAB PO SCH (21:30)
[2016-11-23] VITALS (12 sets, daily range): BP systolic 126–156; BP diastolic 66–74; PULSE 50–60; RESP 16; TEMP 98–98.4; O2SAT 95–96
[2016-11-23 06:06] LABS: AUTOMATED NEUTROPHIL # 2.9 TH/MM3 (1.8-7.7); BASOPHIL % 0.3 % (0.0-2.0); EOSINOPHIL # 0.2 TH/MM3 (0-0.4); EOSINOPHIL % 5.1 % (0.0-4.0); HEMATOCRIT 31.2 % (35.0-46.0); HEMO FLAGS DIFF FINAL; LYMPH % 13.1 % (9.0-44.0); LYMPHOCYTE # 0.5 TH/MM3 (1.0-4.8); MEAN CELL VOLUME 91.5 FL (80.0-100.0); MEAN CORPUSCULAR HEMOGLOBIN 30.4 PG (27.0-34.0); MEAN CORPUSCULAR HGB CONC 33.3 % (32.0-36.0); MONO % 11.8 % (0.0-8.0); NEUT % 69.7 % (16.0-70.0); PLATELET COUNT 126 TH/MM3 (150-450); RED BLOOD COUNT 3.41 MIL/MM3 (4.00-5.30); WHITE BLOOD COUNT 4.1 TH/MM3 (4.0-11.0)
[2016-11-23] MEDS: INSULIN NovoLIN REGULAR SUPPLEMENTAL SCALE SQ SCH (06:09)
[2016-11-23 06:20] LABS: POTASSIUM 4.1 MEQ/L (3.5-5.1)
[2016-11-23 06:23] LABS: HDL CHOLESTEROL 32.8 MG/DL (40.0-60.0)
[2016-11-23] MEDS ORDERED: GLIMEPIRIDE 4 MG TAB PO SCH (07:00)
[2016-11-23] MEDS: CARVEDILOL 12.5 MG TAB PO SCH (08:54)
[2016-11-23] MEDS ORDERED: CLOPIDOGREL 75 MG TAB PO SCH (09:00)
[2016-11-23] MEDS ORDERED: FENOFIBRATE 145 MG TAB PO SCH (09:00)
[2016-11-23] MEDS ORDERED: LISINOPRIL 10 MG TAB PO SCH (09:00)
[2016-11-23] MEDS ORDERED: ASPIRIN 325 MG TAB PO SCH (09:00)
--- NOTE | 2016-11-23 11:02 | PD.CARD.PN ---
Subjective Subjective Remarks Pt without complaints Objective Medications Current Medications Medications (Trade) Dose Ordered Sig/Ashley Route Start Time Stop Time Status Last Admin (NS 1000 ml Inj) 1,000 ml @ 200 mls/hr Q5H IV 11/22/16 07:15 11/22/16 07:15 (Xylocaine 2% Jelly) 1 applic UNSCH PRN TOP 11/22/16 11:45 (Tylenol) 325 mg Q4H PRN PO 11/22/16 12:00 (Percocet 5-325 Mg) 1 tab Q4H PRN PO 11/22/16 12:00 (Percocet 10-325 Mg) 1 tab Q4H PRN PO 11/22/16 11:45 (Morphine Inj) 2 mg Q30M PRN IV PUSH 11/22/16 12:00 (Restoril) 15 mg HS PRN PO 11/22/16 12:00 (Plavix) 75 mg DAILY PO 11/23/16 09:00 11/23/16 08:54 (Ativan Inj) 0.5 mg UNSCH PRN IV 11/22/16 11:45 11/23/16 11:44 Atropine Sulfate 0.5 mg 0.5 mg UNSCH PRN IV 11/22/16 11:45 (NS 250 ml Inj) 250 ml @ 500 mls/hr ONCE PRN IV 11/22/16 13:00 11/23/16 12:59 (Reglan Inj) 10 mg Q4H PRN IV 11/22/16 13:00 (Zofran Inj) 4 mg Q4H PRN IV 11/22/16 13:00 (Xylocaine 1% Inj (50 ml)) 10 ml UNSCH PRN INFIL 11/22/16 11:45 11/23/16 11:44 (Catapres) 0.2 mg Q6H PRN PO 11/22/16 12:00 11/22/16 12:11 (Aspirin) 325 mg DAILY PO 11/23/16 09:00 11/23/16 08:54 (Lipitor) 40 mg HS PO 11/22/16 21:00 11/22/16 21:30 (Coreg) 12.5 mg BID PO 11/22/16 21:00 11/23/16 08:54 (Tricor) 145 mg DAILY PO 11/23/16 09:00 11/23/16 08:55 (Amaryl) 4 mg BIDAC PO 11/23/16 07:00 11/23/16 06:09 (Prinivil) 10 mg DAILY PO 11/23/16 09:00 11/23/16 08:55 (Pepcid) 20 mg HS PO 11/22/16 21:00 11/22/16 21:30 Vital Signs / I&O Vital Signs Date Time Temp Pulse Resp B/P Pulse Ox O2 Delivery O2 Flow Rate FiO2 11/23/16 06:00 50 11/23/16 05:00 54 11/23/16 04:00 52 11/23/16 03:33 98.4 59 16 126/66 95 11/23/16 03:00 60 11/23/16 02:00 56 11/23/16 01:00 54 11/23/16 00:00 60 11/22/16 23:17 98.1 94 16 141/72 95 11/22/16 23:00 58 11/22/16 22:00 56 11/22/16 21:00 56 11/22/16 20:00 98.1 93 16 155/81 95 11/22/16 20:00 64 11/22/16 19:00 65 11/22/16 18:00 64 11/22/16 17:00 64 11/22/16 16:00 62 11/22/16 13:21 95 Room Air I/O 11/22/16 11/22/16 11/22/16 11/23/16 11/23/16 11/23/16 07:00 15:00 23:00 07:00 15:00 23:00 Intake Total 480 ml Balance 480 ml Intake Oral 480 ml # Voids 2 2 Physical Exam GENERAL: Well developed, well nourished. No acute distress. HEENT: Jugular venous pressure is normal. CHEST: Lungs clear to auscultation bilaterally. Unlabored respiratory effort. CARDIAC: Regular rate and rhythm without S3, S4, or murmur. ABDOMEN: Soft, nontender, no hepatosplenomegaly. Bowel sounds present. EXTREMITIES: No clubbing, cyanosis, or edema. right groin looks fine, 1+ DP Laboratory Laboratory Tests Test 11/23/16 04:55 White Blood Count 4.1 TH/MM3 Red Blood Count 3.41 MIL/MM3 Hemoglobin 10.4 GM/DL Hematocrit 31.2 % Mean Corpuscular Volume 91.5 FL Mean Corpuscular Hemoglobin 30.4 PG Mean Corpuscular Hemoglobin 33.3 % Concent Red Cell Distribution Width 15.0 % Platelet Count 126 TH/MM3 Mean Platelet Volume 9.9 FL Neutrophils (%) (Auto) 69.7 % Lymphocytes (%) (Auto) 13.1 % Monocytes (%) (Auto) 11.8 % Eosinophils (%) (Auto) 5.1 % Basophils (%) (Auto) 0.3 % Neutrophils # (Auto) 2.9 TH/MM3 Lymphocytes # (Auto) 0.5 TH/MM3 Monocytes # (Auto) 0.5 TH/MM3 Eosinophils # (Auto) 0.2 TH/MM3 Basophils # (Auto) 0.0 TH/MM3 CBC Comment DIFF FINAL Differential Comment Sodium Level 143 MEQ/L Potassium Level 4.1 MEQ/L Chloride Level 108 MEQ/L Carbon Dioxide Level 30.0 MEQ/L Anion Gap 5 MEQ/L Blood Urea Nitrogen 32 MG/DL Creatinine 1.87 MG/DL Estimat Glomerular Filtration 27 ML/MIN Rate Random Glucose 130 MG/DL Calcium Level 8.3 MG/DL Total Creatine Kinase 173 U/L Triglycerides Level 141 MG/DL Cholesterol Level 113 MG/DL LDL Cholesterol 52 MG/DL HDL Cholesterol 32.8 MG/DL Cholesterol/HDL Ratio 3.44 RATIO Assessment and Plan Assessment and Plan s/p PCI LAD and CX- doing great -meds and activities discussed CKD- follow up with Dr Suarez next week Marcella Cui MD Nov 23, 2016 11:02
--- NOTE | 2016-11-23 13:04 | EKG ---
Date Performed: 11/23/2016 Time Performed: 06:30:24 PTAGE: 66 years EKG: Sinus bradycardia Left axis deviation IV conduction defect Left ventricular hypertrophy Ext ensive ST-T changes may be due to hypertrophy and/or ischemia Abnormal ECG PREVIOUS TRACING : 11/22/2016 12.22 Compared to prior tracing no significant change DOCTOR: Kerwin Mitchell Interpretating Date/Time 11/23/2016 13:02:37
--- NOTE | 2016-11-23 13:35 | EKG ---
Date Performed: 11/22/2016 Time Performed: 12:22:36 PTAGE: 66 years EKG: Sinus rhythm Prolonged QT interval Left axis deviation Left ventricular hypertrophy Extensive ST-T changes may be due to hypertrophy and/or ischemia Abnormal ECG PREVIOUS TRACING : 10/18/2016 08.20 Compared to prior tracing no significant change DOCTOR: Kerwin Mitchell Interpretating Date/Time 11/23/2016 13:32:34
== END 2016-11-23 11:49 | disposition home or self-care (01) ==
LOC: HDOC 06:32 → HDIC 06:32 → HCIN 16:33 → HDOC 11-23 11:49
PROVIDERS: ATTEND Internal Medicine
DX: I25.10 Atherosclerotic heart disease of native coronary artery without angina pectoris (principal); I34.0 Nonrheumatic mitral (valve) insufficiency; N18.9 Chronic kidney disease, unspecified; Z01.810 Encounter for preprocedural cardiovascular examination; Z01.818 Encounter for other preprocedural examination
CPT/HCPCS: 80048; 80061; 82550; 85025; 92928; 92929; 93005; 93454; C1725; C1769; C1874; C1887; C1893; J0583; J1644; J2250; J3010; J7030; Q9967

== ENCOUNTER 2017-12-04 05:56 | Day surgery (SDC) | payer MEDICARE ==
[~2017-12-04] VITALS: Ht 157.5 cm; Wt 77.6 kg
[~2017-12-04 05:56] MED LIST changes: +ASPI-183 PO; -ASPI325T PO; -CYAN100017 PO; +PLAV75TA29 PO; +VITA10002 PO
[2017-12-04] MEDS ORDERED: SODIUM CHLOR 0.9% 1000 ML INJ 400 ML IV ONE (06:00)
[2017-12-04 06:45] VITALS: BP 168/88; PULSE 62; RESP 17; TEMP 98; O2SAT 96
[2017-12-04] MEDS ORDERED: FURO40TA PO (06:58)
[2017-12-04] MEDS ORDERED: TOBRSUS9 RIGHT EYE (06:58)
[2017-12-04] MEDS ORDERED: POTA10CA PO (07:00)
[2017-12-04] MEDS ORDERED: HEPARIN SODIUM - IV 10,000 UNITS/10 ML VIAL ONE (08:45)
[2017-12-04] MEDS ORDERED: HEPARIN-NS/PF INJ 1,000 ML ONE (08:45)
[2017-12-04] MEDS ORDERED: NITROGLYCERIN INJ 5 ML ONE (08:45)
[2017-12-04] MEDS ORDERED: MIDAZOLAM HCL 2 MG/2 ML VIAL ONE (08:45)
[2017-12-04] MEDS ORDERED: LIDOCAINE HCL 1% PF 30 ML VIAL ONE (08:49)
[2017-12-04] MEDS ORDERED: LIDOCAINE HCL 1% 50 ML VIAL INFIL PRN (09:30)
[2017-12-04] MEDS ORDERED: SODIUM CHLOR 0.9% 250 ML INJ 250 ML IV PRN (09:30)
[2017-12-04] MEDS ORDERED: LORazepam 2 MG/ML VIAL IV PUSH PRN (09:30)
[2017-12-04] MEDS ORDERED: BACITRACIN OINT 0.9 GM PKT TOP ONE (09:30)
[2017-12-04] MEDS ORDERED: oxyCODONE/ACETAMINOPHEN 5 MG/325 MG TAB PO PRN ×2 (09:30)
[2017-12-04] MEDS ORDERED: MISC INFORMATION XX ONE (09:30)
[2017-12-04] MEDS ORDERED: ATROPINE SULFATE 1 MG/ML VIAL IV PUSH PRN (09:30)
--- NOTE | 2017-12-04 09:52 | CATHPROC ---
[employer] HIS Report Study Information Study Number Admission Scheduled Start Study Start [id number] Dec 04 2017 5:56AM 12/04/2017 Dec 04 2017 8:36AM [place] [facility] Cath Endovascular Study Admit Source Facility Department Other [facility] Registrar Physician and Clinical Staff Initial Clayton Landaverde Manager Lsw Zabrina Sullivan,RN Recorder Parish Valencia,RT(R) Scrub Nidia Burgos,RT(R) (BS) Procedures Performed Procedure Location (Site) Vessel Name Wire insertion Fem Art (left) Femoral Art Equipment Time Chief Operating Engineer Description Size Mfg Part Number Used/Scraped [id number] 08:51 CORDIS/ MILVIA RIM SUPER TORQUE CATHETER FR 5 Used *[id number] *[id number] 08:51 MALLINCKRODT SYRINGE, ANGIOMAT 150ML 150ML [id number] Used [id number] 08:51 TATE'S LIST BLANKET,WARM AIR CCL * Used *[id number] 08:51 TATE'S LIST PACK, CCL CUSTOM * Used *[id number] 08:51 Conekta PACER PEN, SKIN DUAL W/ RULER * Used *[id number] 08:51 [employer] MEDICAL WIRE, EXCHANGE 260CM 3MMJ 260CM Used *[id number] 08:51 NAMIC MANIFOLD, 4 PORT * Used *[id number] 08:51 NAMIC TUBING, HIGH PRESSURE 48" 48" Used *[id number] TUBING, PRESSURE INJECTION [id number] 08:51 NAMIC 72" Used 72" *[id number] 08:51 NYCOMED OMNIPAQUE, 300 MG, 150ML 150ML [id number] Used [id number] 08:51 TERUMO MEDICAL SHEATH, FR5 TERUMO (10CM) FR 5 Used *[id number] WIRE, ANGLE GLIDE STIFF .035 [id number] 08:51 TERUMO MEDICAL/MILVIA 260CM Used 260CM *[id number] History: Allergies Allergy Reaction No Known Allergies History: Risk Factors Family History of Hypertension Dyslipidemia Previous ME Previous Heart Failure Premature CAD Yes Yes No No No Prior Valve Prior PCI Prior CABG Surgery No Yes No Cerebrovascular Peripheral Artery Chronic Lung On Dialysis Diabetes Diabetes Therapy Disease Disease Disease No No Yes Yes Yes Insulin History: Other Current Smoker Method Quit Packs a Day Years Used Pack Years No Cigarettes 20 Years Ago 1 25 25 Labs Hgb (g/dl) Hct (%) WBC (l/cumm) Platelets (thousands) 11.60-17.00 35.00-51.00 4.00-11.00 150.00-450.00 12.1 35.7 4.2 164 Glucose (mg/dl) BUN (mg/dl) Creatinine (mg/dl) BUN:Creatinine (1:x) 74.00-106.00 7.00-18.00 0.50-1.30 10.00-20.00 110 39 2.1 18.6 Na (meq/l) K (meq/l) 136.00-145.00 3.50-5.10 144 4.3 INR (PTT:PT) 0.90-1.10 1 CPK-MB (ng/ML) 0.50-3.60 Not Drawn Medication Medication Total Dose (Bolus/Oral) Medication Total Dosage/Unit 1% XYLOCAINE 20 mL FENTANYL 50 mcg OXYGEN 2 l/min VERSED 2 mg Medications (Bolus/Oral) Medication Time Given Dosage/Unit Administered By Reason VERSED 12/04/2017 9:07:07 AM 2 mg Zabrina Sullivan 2 mg VERSED given in lab by Zabrina Sullivan RN via Peripheral IV. Ordered by Clayton Suarez. FENTANYL 12/04/2017 9:08:56 AM 50 mcg Zabrina Sullivan 50 mcg FENTANYL given in lab by Zabrina Sulliavn RN via Peripheral IV. Ordered by Clayton Suarez. 1% XYLOCAINE 12/04/2017 9:11:33 AM 20 mL Clayton Suarez 20 mL 1% XYLOCAINE given in lab by Clayton Suarez in Left Groin via Subcutaneous. Ordered by Griselda Suarez. OXYGEN 12/04/2017 9:12:38 AM 2 l/min Zabrina Sullivan 2 l/min OXYGEN given in lab by Zabrina Sullivan RN via Nasal. Ordered by Clayton Suarez. Medication (Drip) Medication Time Given Dosage/Unit Concentration/Unit Diluent (ml) Solution IV Solutions 12/04/2017 8:47:23 AM 0 mL (IV) 500 NaCl .9 Patient arrived on IV Solutions given by Clayton Suarez in Left Antecubital via Peripheral IV. Pump/D rip Flow = 20 ml/hr using NaCl .9. Ordered by Clayton Suarez. Chronological Log Time Study Chronological Log 8:34:57 Patient arrived via Bed. 8:35:58 Patient Name, D.O.B, / Armband Verified By R.N. 8:36:00 Consent signed by the physician and the patient and verified by the [facility] Registrar staff. 8:36:01 Pre-op and post- op instructions given; patient acknowledges understanding of instructions . 8:36:20 Verbal Stimulation=2 Physical Stimulation=2 Airway=2 Respiration=2 TOTAL=8. (0=absent, 1=l imited, 2=present) 8:36:29 Presedation assessment performed by [facility] Registrar RN. 8:45:48 Reference ECG taken 8:46:20 Patient has been NPO for More than 6Hrs. 8:46:23 Skin Breakdown-none present per patient. 8:47:07 A # 20 IV was noted in the Antecubital (left). Grade = 0 Patient arrived on IV Solutions given by Clayton Suarez in Left Antecubital via Peripheral IV . Pump/Drip Flow = 20 8:47:23 ml/hr using NaCl .9. Ordered by Clayton Suarez. 8:47:52 History and physical on the chart or being dictated. Vitals capture started with the following parameters, Patient=Adult, Interval=5 min, Initial Vqmapwby=073 mmHg, 8:47:57 Deflation Rate=5 mmHg, Cuff placed on Right Ankle 8:48:43 HR=67 bpm, BBWQ=542/90 mmhg, BkD7=520.0 %, Resp=15 B/min, Grider=2 8:49:56 Bilateral groins prepped with 2% chlorhexidine, and draped after a 3 minute waiting time. 8:53:38 HR=69 bpm, XQZD=633/95 mmhg, KiI9=873.0 %, Resp=14 B/min, Grider=2 8:58:27 Pressure channel 1 zeroed. 8:58:41 HR=69 bpm, ZVYV=465/95 mmhg, CpW5=075.0 %, Resp=15 B/min, Grider=2 9:03:42 HR=69 bpm, VWNT=218/92 mmhg, OaK8=456.0 %, Resp=15 B/min, Grider=2 Time Out. Correct patient, correct procedure, correct physician, labs, allergies, and equipme nt verified with specialist employee labor relations 9:06:35 team present. Fire risk assesment completed (see hard stop sheet for coding). Time Out Con curred by MD and individual staff in procedure. 9:07:07 2 mg VERSED given in lab by Zabrina Sullivan, RN via Peripheral IV. Ordered by Reshma Suarez enMonica 9:08:41 HR=66 bpm, WWJN=646/78 mmhg, SpO2=99.0 %, Resp=13 B/min, Grider=2 9:08:56 50 mcg FENTANYL given in lab by Zabrina Sullivan, RN via Peripheral IV. Ordered by Misael Suarez phen. 9:10:29 Case Start 9:10:31 Verbal Stimulation=2 Physical Stimulation=2 Airway=2 Respiration=2 TOTAL=8. (0=absent, 1=trent ited, 2=present) 9:11:33 20 mL 1% XYLOCAINE given in lab by Clayton Suarez in Left Groin via Subcutaneous. Ordered by Clayton Suarez. 9:12:38 2 l/min OXYGEN given in lab by Zabrina Sullivan, SAQIB via Nasal. Ordered by Clayton Suarez. 9:12:48 Access site was Left Femoral Artery. 9:12:52 A WIRE, EXCHANGE 260CM 3MMJ 260CM was inserted via Fem Art (left). 9:13:23 A SHEATH, FR5 TERUMO (10CM) FR 5 was advanced into the Fem Art (left) using the Percutaneous technique. 9:13:40 HR=65 bpm, QJMP=438/72 mmhg, SpO2=98.0 %, Resp=10 B/min, Grider=2 A PIGTAIL ANG. INFINITI CATHETER FR 5 was advanced over a wire. OMNIPAQUE, 300 MG, 150ML 150ML w as used 9:14:07 for injections. 9:14:15 Wire removed 9:14:32 Manual Injection of CO2 contrast. Abd./Illiacs 9:17:23 A WIRE, EXCHANGE 260CM 3MMJ 260CM was inserted via Fem Art (left). After removing the current catheter a RIM SUPER TORQUE CATHETER FR 5 was advanced over a WIRE, E XCHANGE 9:17:34 260CM 3MMJ 260CM. 9:17:52 Wire removed 9:17:56 Manual CO2 injections down right leg through 5 [place] islander rim catheter. 9:18:35 HR=65 bpm, SJHR=889/78 mmhg, SpO2=98.0 %, Resp=14 B/min, Grider=2 9:23:40 HR=65 bpm, HGCU=683/69 mmhg, SpO2=98.0 %, Resp=13 B/min, Grider=2 9:24:07 Catheter was removed OTW. 9:28:26 Manual injections CO2 contrast down left leg through 5 [place] island[place] sheath. 9:28:41 HR=60 bpm, OAEU=797/57 mmhg, SpO2=98.0 %, Resp=15 B/min, Grider=2 9:30:04 Catheter(s) removed without difficulty 9:30:11 No case complications noted. 9:30:12 Cine recording checked. 9:30:17 Bedside Report will be given. 9:33:38 HR=60 bpm, ICCB=437/49 mmhg, QnY4=091.0 %, Resp=15 B/min, Grider=2 9:35:07 Sheath removed; pressure applied to access site. 9:38:35 HR=57 bpm, SOAY=360/59 mmhg, SpO2=99.0 %, Resp=14 B/min, Grider=2 9:43:34 HR=60 bpm, BZAI=263/60 mmhg, BaX0=413.0 %, Resp=11 B/min, Grider=2 9:48:38 HR=59 bpm, ZEGO=659/63 mmhg, JrJ4=259.0 %, Resp=11 B/min, Grider=2 9:50:11 Sterile dressing applied to site 9:50:20 Vitals capture stopped. 9:52:10 Patient moved to [facility] End Study - Contrast Media Used In Study Contrast Total Opened (mL) Total Used (mL) Total Wasted (mL) Unspecified 0 0 0 End Study - Maximum Contrast Load Max Contrast Load (mL) 184.7 End Study - Radiation Exposure Fluoro Time (minutes) 2.2 End Study - Patient Disposition Complications Transferred To Telemetry Bed
--- NOTE | 2017-12-04 10:14 | MA ---
cc: Clayton Suarez MD DATE: 12/04/2017 CONTRAST: CO2 angiography, which is not nephrotoxic was utilized for the entire case. No iodine contrast was administered. PROCEDURE PERFORMED: 1. Fluoroscopy with interpretation. 2. Descending aortography. 3. Bilateral lower extremity peripheral angiography with first, second and third order of visualization interpretation. METHOD: Risks, benefits, and alternatives discussed with the patient. The patient understood and consented to the procedure. The patient was brought to catheterization lab and placed on the catheterization table. Left groin was prepped and draped in sterile fashion. The left groin was anesthetized with 2% lidocaine. Left common femoral artery was cannulated under fluoroscopic guidance and a 5-Croatian 11 cm sheath was placed without difficulty. DESCENDING AORTOGRAPHY: Descending aortography was performed with CO2 angiography in anterior posterior view with good visualization. Descending aortography showed bilateral renal arteries are patent and there is mild luminal irregularities and the descending aorta is not dilated. PERIPHERAL ANGIOGRAPHY: 1. Right common femoral artery has 30% stenosis present. Right external iliac artery has mild luminal irregularities. The right internal iliac artery has mild luminal irregularities. Right common femoral artery has 90% heavily calcified stenosis at the level of the bifurcation of the profunda artery. Profunda artery, otherwise has mild luminal irregularities. The right superficial femoral artery is occluded in the proximal segment, through the mid segment, to the mid distal segment and is collateralized via the profunda. There is mild to moderate disease in the distal superficial femoral artery just prior to the popliteal portion. The popliteal artery looks to have only minor luminal irregularities. The posterior tibial trunk has moderate disease present. The anterior tibial appears to have subtotal occlusion and peroneal vessel is patent, small caliber size. Posterior tibial is patent, has minor luminal irregularities and collateralizes the dorsalis pedis distally. 2. Left common, internal, external iliac arteries have mild luminal irregularities. Left common femoral artery has mild diffuse disease. The profunda artery has mild disease proximally, otherwise patent. Left superficial femoral artery has an ostial occlusion and is recanalized via collaterals distally at the level of the popliteal. The popliteal artery appears to have mild diffuse disease, but is patent. Posterior tibioperoneal trunk has mild disease. Anterior tibial appears to be patent, but smaller caliber size. There looks to be more diffuse disease distally. The posterior tibial is patent, but at the very distal segment has moderate disease at the level of the ankle. Peroneal vessel actually feeds collaterals to the foot and the anterior tibial is diffusely diseased, which leads to not well visualized dorsalis pedis vessel. CONCLUSIONS: 1. Severe diffuse peripheral arterial disease involving bilateral common femoral and superficial femoral arteries. 2. Moderate diffuse infrapopliteal disease is present. RECOMMENDATION: Given the proximity to the common femoral artery on the left side and the involvement of the common femoral artery on the right side, I think she would be best served with consideration for peripheral bypass. Does appear to have potential targets in both popliteal arteries, although there may be moderate diffuse infrapopliteal disease still present, improved inflow may be enough given her symptoms are primarily claudication and no ulcers present. We will consult vascular surgery for their opinion on revascularization strategy. Clayton Suarez MD YENNIFER/TL , 09:40 AM , 10:13 AM
--- NOTE | 2017-12-04 11:46 | PD.VS.CON ---
History of Present Illness Chief Complaint: B LE claudication (R>L) Consult Requested by: History of Present Illness 67/F with a PMH of DM (HBG A1C 6.8), Chronic Kidney Disease (Stage 4), Hypertension, CAD and Hyperlipidemia Pt presents with B LE claudication (R>L) for a duration of several years Pt s/p B LE angiogram w/ Dr. Suarez with findings of severe diffuse peripheral arterial disease involving bilateral common femoral and superficial femoral arteries. Pt w/o rest pain LE warm w/ motor intact (Desi Mckeon) Past/Family/Social History Past Medical History DM (HBG A1C 6.8) Chronic Kidney Disease (Stage 4) Hypertension Coronary Artery Disease Hyperlipidemia Past Surgical History Tonsillectomy R Carotid Endarterectomy L Carotid Endarterectomy Social History Lives w/ daughter Single- Has a long-term boyfriend Has 2 children Retired- Substance Abuse Nurse Former Smoker- Quit 20 years ago Denied ETOH Denied Illicit Drug Usage (Desi Mckeon) Home Medications Active Scripts Clopidogrel (Plavix) 75 Mg Tab, 75 MG PO DAILY for Blood Clot Prevention, #30 TAB 11 Refills Prov:Clayton Suarez MD 11/22/16 Reported Medications Potassium Chloride ER (Potassium Chloride ER) 10 Meq Cap, 10 MEQ PO DAILY for Electrolyte Replacement, #30 CAP 0 Refills 12/04/17 Furosemide (Furosemide) 40 Mg Tab, 40 MG PO DAILY, #30 TAB 0 Refills 12/04/17 Tobramycin-Dexamethasone Opth Drops (Tobramycin-Dexamethasone Opth Drops) 0.3- 0.1 % Susp, 1 DROP RIGHT EYE QID for Infection/Inflammation, #1 BOTTLE 0 Refills 12/04/17 Cyanocobalamin (Vitamin B-12) 1,000 Mcg Tab, 1000 MCG PO DAILY for Nutritional Supplement, #1 BOTTLE 0 Refills 11/22/16 Cholecalciferol (Vitamin D-1000) 1,000 Unit Tab, 1000 UNITS PO DAILY for Nutritional Supplement, #1 BOTTLE 0 Refills 10/24/16 Calcium Carbonate (Calcium Carbonate) 1,500 Mg Tab, 1500 MG PO DAILY for Calcium Supplement, TAB 0 Refills 1,500 mg calcium carbonate (600 mg elemental calcium) 10/18/16 Lisinopril (Lisinopril) 10 Mg Tab, 10 MG PO DAILY, #30 TAB 0 Refills 10/18/16 Fenofibrate (Fenofibrate) 145 Mg Tab, 145 MG PO DAILY, #30 TAB 0 Refills 10/18/16 Atorvastatin (Atorvastatin) 40 Mg Tab, 40 MG PO HS for Cholesterol Management, # 30 TAB 0 Refills 10/18/16 Ranitidine (Ranitidine) 150 Mg Tab, 150 MG PO HS for Heartburn Management, #30 TAB 0 Refills 10/18/16 Insulin Human Regular Inj (Novolin R Inj) 1,000 Unit/10 Ml Vial, 1-9 UNITS SQ ACHS for Blood Sugar Management, #10 ML 0 Refills Max dose at bedtime:( )units; sugars less than 70,(0) units; sugars 150-199,(1)unit; sugars 200-249,(3)units; sugars 250-299,(5) units; sugars 300-349,(7)units; sugars greater than 349,(9)units 10/18/16 Insulin Human NPH Inj (Novolin N Inj) 1,000 Unit/10 Ml Vial, 28 UNITS SQ for Blood Sugar Management, #10 ML 0 Refills 10/18/16 Carvedilol (Carvedilol) 12.5 Mg Tab, 12.5 MG PO BID, #60 TAB 0 Refills 10/18/16 Nitroglycerin SL (Nitrostat SL) 0.4 Mg Subl, 0.4 MG SL DIRECTED Y for CHEST PAIN, #100 TAB.SL 0 Refills 1 tablet under the tongue as needed for chest pain. Repeat every 5 minutes for a total of 3 DOSES or call 911 if NO relief. 10/18/16 Aspirin (Aspirin) 325 Mg Tab, 325 MG PO DAILY, #30 TAB 0 Refills 10/18/16 Coded Allergies: No Known Allergies (Verified , 11/10/13) Review of Systems Constitutional: DENIES: Fever, Chills Respiratory: DENIES: Shortness of breath Cardiovascular: COMPLAINS OF: Claudication (R>L), DENIES: Chest pain, Lower Extremity Edema Except as stated in HPI: all other systems reviewed are Neg (Desi Mckeon) Physical Exam Vitals/I&O Date Time Temp Pulse Resp B/P (MAP) Pulse Ox O2 Delivery O2 Flow Rate FiO2 12/04/17 10:02 96 Room Air 12/04/17 06:45 98.0 62 17 168/88 (114) 96 Neuro: Speech Clear GCS 15 A&OX3 Neck: NO JVD distention No Carotid Bruits R/L healed neck incisions- HX of R/L CEA Heart: +S1,S2 RRR Lungs: CTA Abdomen: S/NT Vascular: NON palpable R/L DP/PT LE warm w/ motor intact Extremities: UE 5/5 LE 5/ (Desi Mckeon) Assessment and Plan Assessment: (1) PAD (peripheral artery disease) Plan 67/F with B LE claudication Pt medically managed w/ ASA/Statin Pt S/p B LE angiogram with findings of severe diffuse peripheral arterial disease Plan Discussed and reviewed PVD w/ claudication Questions answered Continue ASA/Statin therapy Arranged out pt f/u in 2W with a surveillance ALVIN Pt made aware of plan Desi Mckeon NP [facility] [phone] Discharge Planning Arranged out pt f/u in 2W (Desi Mckeon) Plan R>L claudication but no limb-threatening ischemia. Significant cardiac history. Will RTC and discuss options. Agree with above. Jay Epps MD FACS RPVI rn float [facility] at [facility] (Jay Epps MD) Desi Mckeon Dec 04, 2017 11:46 Jay Epps MD Dec 04, 2017 12:41
== END 2017-12-04 14:23 | disposition home or self-care (01) ==
LOC: HDIC 05:56 → HDOC 05:56
PROVIDERS: ATTEND Internal Medicine
DX: I73.9 Peripheral vascular disease, unspecified (principal); E11.51 Type 2 diabetes mellitus with diabetic peripheral angiopathy without gangrene; E11.22 Type 2 diabetes mellitus with diabetic chronic kidney disease; N18.4 Chronic kidney disease, stage 4 (severe); I25.10 Atherosclerotic heart disease of native coronary artery without angina pectoris; E78.5 Hyperlipidemia, unspecified; Z87.891 Personal history of nicotine dependence; Z79.899 Other long term (current) drug therapy; Z79.4 Long term (current) use of insulin; I12.9 Hypertensive chronic kidney disease with stage 1 through stage 4 chronic kidney disease, or unspecified chronic kidney disease
CPT/HCPCS: 36246; 75625; 75716; 86850; 86900; 86901; 99152; 99153; C1769; C1893; J1644; J2250; J3010